=== PATIENT | male | born 1980 | race Caucasian/White ===

== ENCOUNTER 2021-01-11 08:06 | Day surgery (SDC) | payer OTHER ==
[2020-12-21 15:35] VITALS: BMI 29.8
[2021-01-11 08:44] VITALS: TEMP 97.8
[2021-01-11 10:02] VITALS: BP 123/74; PULSE 75
== END 2021-01-11 10:25 | disposition home or self-care (01) ==
LOC: FASU-ENDO 08:06
PROVIDERS: ATTEND Internal Medicine Gastroenterology
PROC: 0DBN8ZX Excision of Sigmoid Colon, Via Natural or Artificial Opening Endoscopic, Diagnostic (ICD-10-PCS; principal; 2021-01-11 09:27)
DX: D12.5 Benign neoplasm of sigmoid colon (principal); K62.5 Hemorrhage of anus and rectum
CPT/HCPCS: 88305-TC